=== PATIENT | female | born 1945 | race Caucasian/White ===

== ENCOUNTER → 2016-06-21 | Outpatient (CLI) | payer MEDICARE, BC ==
[~2016-06-21] MED LIST: ASPIRIN81 M2 PO; BENTYL10 M1 PO; BUMEX1 MG PO; CEFTRIAXONE2 GM IM/IV; CELEXA20 MG PO; CRESTOR PO; DIOVAN HCT 3201 EACH PO; HYDRALAZINE HCL50 MG PO; IMDUR-ER60 M1 PO; IMIPRAMINE HCL50 MG PO; IRON325 ( 651 PO; KCL PO; LEVOTHYROXINE100 MCG PO; LOMOTIL WHITE2.5 M1 PO; MACRODANTIN50 MG PO; NOVOLIN N100 UNIT/1 SUBQ; NOVOLIN R100 UNITS/; NOVOLIN R100 UNITS/ SUBQ; TOPROL XL100 MG PO; VICODIN 5-3001 EACH PO
[2016-06-21 21:36] LABS: HEMATOCRIT 31.4 % (35.0-45.0); HEMOGLOBIN 10.5 gm/dL (12.0-16.0); MEAN CELL VOLUME 93.3 FL (83-96); MEAN CORPUSCULAR HEMOGLOBIN 31.2 PG (28-34); MEAN CORPUSCULAR HGB CONC 33.4 g/dL (30-36); RED BLOOD COUNT 3.36 X10e (3.90-5.30); RED CELL DISTRIBUTION WIDTH 15.4 % (11.0-15.5); WHITE BLOOD COUNT 11.5 X10e3 (4.0-10.5)
[2016-06-21 22:14] LABS: CALCIUM SERUM 9.1 mg/dL (8.4-10.2); CREATININE SERUM 0.9 mg/dL (0.6-1.4); GLOM FILT RATE Estimated 64.4 mL/min (>60); POTASSIUM 4.3 mmol/L (3.5-5.1)
== END | disposition home or self-care (01) ==
LOC: CLAB 21:02
PROVIDERS: Internal Medicine Nephrology
DX: N18.3 Chronic kidney disease, stage 3 (moderate) (principal); D64.9 Anemia, unspecified
CPT/HCPCS: 80048; 82728; 83540; 83550; 85027